=== PATIENT | female | born 2000 | race Caucasian/White ===

== ENCOUNTER → 2025-01-12 | Outpatient (CLI) | payer MEDICAID, SELFPAY ==
[2025-01-12 10:32] LABS: Bacteria 0 SEEN /hpf (None Seen); Mucous, Urine 0 SEEN /hpf (<or=2+)
[2025-01-12 12:18] LABS: Color, Urine Yellow (Yellow); Glucose, Dipstick Normal (Normal); Ketone-Dipstick Negative (Negative); Leukocyte Esterase-Dipstick 500 /ul (Negative); Nitrite-Dipstick Negative (Negative); Occult Blood-Urine Negative /ul (Negative); Protein-Dipstick Negative (Negative); Urine Bilirubin Dipstick Negative (Negative); Urine Clarity Clear (Clear); Urine Urobilinogen Normal (Normal)
[2025-01-12 12:37] LABS: Squamous Epithelial Cells - UA 5-10 SEEN /hpf (5-10); White Blood Cells 0-5 SEEN /hpf (0-5)
[2025-01-12 15:35] LABS: Red Blood Cells-Urine 0 SEEN /hpf (0-5)
== END | disposition home or self-care (01) ==
LOC: LABSPEC 10:31
PROVIDERS: Referring Provider Physician Assistant; Visit Provider Physician Assistant
DX: R39.11 Hesitancy of micturition (principal)
CPT/HCPCS: 81001; 87086; 87088

== ENCOUNTER → 2025-02-02 | Outpatient (CLI) | payer MEDICAID, SELFPAY ==
[2025-02-02 13:24] LABS: Mucous, Urine 0 SEEN /hpf (<or=2+)
[2025-02-02 16:16] LABS: Color, Urine Yellow (Yellow); Glucose, Dipstick Normal (Normal); Ketone-Dipstick Negative (Negative); Leukocyte Esterase-Dipstick 100 /ul (Negative); Nitrite-Dipstick Negative (Negative); Occult Blood-Urine Negative /ul (Negative); Protein-Dipstick Negative (Negative); Specific Gravity, Urine 1.005 (1.002-1.030); Urine Bilirubin Dipstick Negative (Negative); Urine Clarity Clear (Clear); Urine Urobilinogen Normal (Normal)
[2025-02-02 16:42] LABS: Bacteria 1+ /hpf (None Seen); Red Blood Cells-Urine 0-5 SEEN /hpf (0-5); Squamous Epithelial Cells - UA 10-25 SEEN /hpf (5-10); White Blood Cells 5-10 SEEN /hpf (0-5)
== END | disposition home or self-care (01) ==
LOC: LABSPEC 13:21
PROVIDERS: PCP Physician Assistant; Referring Provider Physician Assistant; Visit Provider Physician Assistant
DX: R35.0 Frequency of micturition (principal)
CPT/HCPCS: 81001; 87086; 87088

== ENCOUNTER → 2025-04-08 | Outpatient (CLI) | payer MEDICAID, SELFPAY ==
[2025-04-08 12:48] LABS: Absolute Lymphocyte Count 3.09 X10^3/uL (0.83-4.51); Absolute Neutrophil Count 4.6 X10^3/uL (2.0-7.7); Basophil# 0.05 X10^3/uL; Basophil% 0.6 % (0-1); Eosinophil# 0.09 X10^3/uL; Eosinophils% 1.1 % (0-5); Hematocrit 43.7 % (37-47); Hemoglobin 14.8 g/dL (12.0-15.0); Lymphocyte # 3.09 X10^3/ul (0.83-4.51); Lymphocyte % 36.2 % (19-41); Mean Corp Hgb Conc 33.9 g/dL (32-36); Mean Corpuscular Hgb 30.2 pg (27.0-32.0); Mean Corpuscular Volume 89.2 fL (81-99); Mean Platelet Vol. 10.6 fl (6.2-12.0); Monocyte# 0.65 X10^3/uL; Monocyte% 7.6 % (0-10); NRBC Flagged by Analyzer 0 % (0-5); Neutrophil % 53.9 % (47-70); Platelet Count 369 K/mm3 (150-450); RBC Distribution Width CV 11.9 % (11.6-14.6); RBC Distribution Width SD 38.6 fl (35.1-43.9); White Blood Count 8.5 K/mm3 (4.4-11.0)
[2025-04-08 13:52] LABS: Cholesterol 153 mg/dL (<=200); High Density Lipoprotein 25 mg/dL; Low Density Lipoprotein Calc. 79 mg/dL; Triglycerides 246 mg/dL; Very Low Density Lipoprotein 49 mg/dL (5-40); cholesterol:hdl ratio screen 6.05
[2025-04-08 14:32] LABS: ALB/GLOB Ratio 1.7 RATIO (0.9-2.4); AST(SGOT) 20 U/L (<=31); Alanine Aminotransfer ALT/SGPT 12 U/L (<=34); Albumin, Serum 4.6 g/dL (3.5-5.0); Alkaline Phosphatase 84 U/L (35-104); Anion Gap 10 (5-15); BUN 12 mg/dL (4-19); BUN/Creat Ratio 13.7 RATIO (10-20); Calcium,Total 9.8 mg/dL (7.6-11.0); Chloride 104 mmol/L (98-108); Creatinine, Serum 0.87 mg/dL (0.70-1.20); EST Glomerular Filtration Rate 94 (>60); Globulin 2.7 g/dL (2.2-4.2); Glucose 92 mg/dL (70-99); Potassium 4.2 mmol/L (3.3-5.1); Protein, Total 7.3 g/dL (5.9-8.4); Sodium Level 138 mmol/L (133-145); Total Bilirubin 0.49 mg/dL (0.00-1.30)
--- OUTSIDE RECORDS SUMMARY | 2025-04-08 18:47 | XMS RPT_ITS | CCD ---
Author Organization [facility] Care Team Providers Care Baseball Inspector Name Role Phone KYRA MUHAMMAD Unavailable Unavailable KYRA MUHAMMAD Unavailable Unavailable Pending Provider Unavailable Unavailable Dr. Darnell Garcia Attending Unavailable Dr. Darnell Garcia Referring Unavailable Pending, Provider Primary Care Unavailable Breana Albert Unavailable Sami Araon Attending Provider [phone] Juan LOOMIS, Sami Referring Provider Juan LOOMIS, Sami Primary Care Provider [phone] Juan LOOMIS, Sami Attending Unavailable Juan LOOMIS, Sami Referring Unavailable Juan LOOMIS, Sami Attending Unavailable Juan LOOMIS, Sami Referring Unavailable Juan LOOMIS, Sami Primary Care Unavailable Juan LOOMIS, Sami Attending Unavailable Kiarra PAZ, Dr. Jade Attending Provider Allergies Allergy Classification Reported Allergen(s) Allergy Type Date of Onset Reaction(s) Facility (1 source) Seasonal allergy; Translations: [SEASONAL ALLERGIES] Propensity to adverse reactions (disorder) 6 [facility] Repository Medications Current Medications Medication Drug Class(es) Dates Sig (Normalized) Sig (Original) nitrofurantoin, macrocrystals 25 mg / nitrofurantoin, monohydrate 75 mg oral capsule (2 sources) Nitrofuran Antibacterial Start: 10-19-2023 take 1 capsule by mouth every twelve hours Macrobid 100 MG 1 cap(s) Orally bid for 5 day(s) Sep, Active phenazopyridine hydrochloride 200 mg oral tablet (2 sources) Start: 10-19-2023 take 1 tablet by mouth every eight hours Pyridium 200 MG 1 tablet after meals Orally Three times a day for 2 day(s) Sep, Active Completed/Discontinued Medications Medication Drug Class(es) Dates Sig (Normalized) Sig (Original) amoxicillin 875 mg / clavulanate 125 mg oral tablet (1 source) Penicillin-class Antibacterial Start: 10-03-2022 take 1 tablet by mouth every twelve hours at mealtime Amoxicillin-Pot Clavulanate 875-125 MG Oral Tablet TAKE 1 TABLET EVERY 12 HOURS WITH MEALS UNTIL GONE. Quantity: 20 Refills: 0 Ordered: 03-Oct-2022 Darnell Garcia MD Start : 03-Oct-2022 Active benzonatate 200 mg oral capsule (1 source) Non-narcotic Antitussive Start: 10-03-2022 take 1 capsule by mouth three times daily as needed Benzonatate 200 MG Oral Capsule TAKE 1 CAPSULE 3 TIMES DAILY NEEDED. Quantity: 30 Refills: 0 Ordered: 03-Oct-2022 Darnell Garcia MD Start : 03-Oct-2022 Active loratadine 10 mg oral tablet (1 source) Start: 10-03-2022 take 1 tablet by mouth once daily Loratadine 10 MG Oral Tablet TAKE 1 TABLET DAILY. Quantity: 10 Refills: 0 Ordered: 03-Oct-2022 Darnell Garcia MD Start : 03-Oct-2022 Active Multivitamin tablet (3 sources) Start: 01-12-2025 End: 04-08-2025 Multivitamin tablet Discontinued 1 {tbl} PO EVERY MORNING January 12, 2025 12:00am April 08, 2025 10:29am Start: 01-12-2025 Multivitamin t ablet Active 1 {tbl} PO EVERY MORNING January 12, 2025 12:00am Problems Problem Classification Problem Date Documented Da te Episodic/Chronic Genitourinary symptoms and ill-defined conditions (9 sources) Dysuria; Translations: [Increased frequency of urination] Onset: 01-20-2025 Episodic Other upper respiratory infections (1 source) Acute frontal sinusitis; Translations: [Acute frontal sinusitis] Episodic Unclassified (1 source) Unknown / UNK(Unknown) Onset: 01-02-2018 Urinary tract infections (1 source) Acute cystitis with hematuria Episodic Results Test Name Value Interpretation Reference Range Facility Urine Cultureon 02-03-2025 URC Below infection leve l. Mixed Gram Pos Gram Neg Org Strawberry Count 1000-10,000 MIX[facility] Mixed contaminants. Submit a new specimen if indicated. Normal [facility] Comment on above: Performed By: #### L 400.0001, M100.0 #### [facility] [address] [place], [place], [id number] Bilirubin Test strip Ql (U)O rdered By: Sami Martinez on 02-02-2025 Bilirubin Ql (U) Negative Negative [facility] Epithelial cells.squamous LM Ql (Urine sed)Ordered By: Sami Martinez on 02-02-2025 Epithelial cells.squamous LM.HPF (Urine sed) [#/Area] 10 /[HPF] 5-10 [facility] Glucose Ql (U)Ordered By: Destiney ttyaa Martinez on 02-02-2025 Urine Glucose (UA) Normal mg/dl Normal [facility] Ketones Test strip Ql (U)Ord ered By: Sami Martinez on 02-02-2025 Ketones Ql (U) Negative Negative [facility] Microscopic analysis of urin e for red blood cells (RBC)Ordered By: Sami Martinez on 02-02-2025 Microscopic analysis of urine for red blood cells (RBC) 0-5 SEEN /hpf 0-5 [facility] Urine RBC 0-5 SEEN /hpf 0-5 [facility] Mucus LM Ql (Urine sed)Order ed By: Sami Martinez on 02-02-2025 Mucus Ql (Urine sed) 0 SEEN /hpf [facility] Nitrite Test strip Ql (U)Ord ered By: Sami Martinez on 02-02-2025 Nitrite Ql (U) Negative Negative [facility] Protein Test strip Ql (U)Ord ered By: Sami Martinez on 02-02-2025 Protein Ql (U) Negative Negative [facility] Squamous epithelial cells de tection in urine sediment by light microscopyOrdered By: Sami Martinez on 02-02-2025 Epithelial cells.squamous LM Ql (Urine sed) 10-25 SEEN /hpf 5-10 [facility] Urinalysis, Completeon 02-02 BACTERIA 1+ /hpf Normal None Seen [facility] Comment on above: Order Comment: COLLE CTOR TO SPECIFY Performed By: #### L 400.0001, M100.2200 #### [facility] [address] [place], [address] EPI,SQUAMOUS 10-25 SEEN Normal 5-10 [facility] Comment on above: Order Comment: MARIE CTOR TO SPECIFY Performed By: #### L 400.0001, M100.2200 #### [facility] [address] [place], [address] RBC 0-5 SEEN Normal 0-5 [facility] Comment on above: Order Comment: MARIE CTOR TO SPECIFY Performed By: #### L 400.0001, M100.2200 #### [facility] [address] [place], [address] WBC 5-10 SEEN Normal 0-5 [facility] Comment on above: Order Comment: MARIE CTOR TO SPECIFY Performed By: #### L 400.0001, M100.2200 #### [facility] [address] [place], [address] Mucus Ql (Urine sed) 0 SEEN Normal [facility] Comment on above: Order Comment: MARIE CTOR TO SPECIFY Performed By: #### L 400.0001, M100.2200 #### [facility] [address] [place], [address] Urine blood detectionOrdered By: Sami Martinez on 02-02-2025 Urine Occult Blood Negative Negative [facility] Urine clarityOrdered By: Davide Martinez on 02-02-2025 Clarity (U) Clear Clear [facility] Urine color determinationOrd ered By: Sami Martinez on 02-02-2025 Color (U) Yellow Yellow [facility] Urine cultureOrdered By: Davide Martinez on 02-02-2025 Bacteria identified Cx Nom (U) Mixed Gram Pos & Gram Neg Org Abnormal [facility] Urine glucose detectionOrder ed By: Sami Martinez on 02-02-2025 Glucose Ql (U) Normal mg/dl Normal [facility] Urine leukocyte esterase det ection by dipstickOrdered By: Sami Martinez on 02-02-2025 Leukocyte esterase Test strip Ql (U) 100 /ul High Negative [facility] Urine pHOrdered By: Sami Martinez on 02-02-2025 pH (U) 7.0 [pH] 5.0 - 8.0 [facility] Urine sediment bacteria coun t by microscopy (number/high power field)Ordered By: Sami Martinez on 02-02-2025 Bacteria LM.HPF (Urine sed) [#/Area] 1 /[HPF] None Seen [facility] Urine specific gravity measu rementOrdered By: Sami Martinez on 02-02-2025 Specific gravity (U) [Rel density] 1.005 1.002-1.030 [facility] Urine urobilinogen measureme ntOrdered By: Sami Martinez on 02-02-2025 Urobilinogen Ql (U) Normal mg/dl Normal [facility] Urobilinogen Ql (U)Ordered B y: Sami Martinez on 02-02-2025 Urine Urobilinogen Normal mg/dl Normal [facility] White blood cell countOrdere d By: Sami Martinez on 02-02-2025 Urine WBC 5-10 SEEN /hpf 0-5 [facility] White blood cell count 5-10 SEEN /hpf 0-5 [facility] Urine Cultureon 01-14-2025 URC Mixed Gram Pos Gram Neg Org Strawberry Count 11,000-25,000 [facility] Mixed contaminants. Submit a new specimen if indicated. Normal [facility] Comment on above: Performed By: #### L 400.0001, M100.2200 #### [facility] [place], [address] Epithelial cells.squamous LM Ql (Urine sed)Ordered By: Sami Martinez on 01-12-2025 Epithelial cells.squamous LM.HPF (Urine sed) [#/Area] 5 /[HPF] 5-10 [facility] Glucose Ql (U)Ordered By: Destiney Martinez on 01-12-2025 Urine Glucose (UA) Normal mg/dl Normal [facility] Internal Medicine Office Vis asaf 01-12-2025 Internal Medicine Office Visit [facility] [address] [place] [address] [address] [place], [place] [address] OFFICE VISIT Date of Service: 01/12/25 MR#: [id number] Acct: [id number] Name: GINI LEVIN Rep #: [id number] : 2000 Provider: EBONIE Sánchez Age/Sex: 24/F Location: [facility] [place] Status: Signed Intake Vital Signs 01/12/25 09:36 Height 5 ft 6 in Weight: 191 lb BMI 30.8 BP 120/80 Blood Pressure Location Lt brachial Position Sitting Respiration 16 Pulse 94 Pulse Source Monitor Temp 97.1 F L Temp Source Temporal Pulse Oximetry (%) 99 Oxygen Delivery Method room air Intake Visit Reasons: ACUTE - UTI SYMPTOMS/EST IN MARCH Pass Worker Required: No Is patient in pain?: No Allergies No Known Allergies Allergy (Verified 01/12/25 09:18) Medications ???Medication ???Instructions ???Recorded ???Confirmed ???Type multivitamin 1 tab PO QAM 01/12/25 01/12/25 His tory Nurse's Note: States she was treated in november for 3 weeks for uti through college nurse, sent a culture out as it did not improve. States she felt better after 2nd atb first one was bactrim which didn't help. Friday she woke up w/ R low back pain. Denies urinary frequency, dysuria, hematuria. [facility] Medical History (Updated 01/12/25 @ 10:52 by EBONIE Nye) Partial retinal detachment Strabismus Surgical History (Updated 01/12/25 @ 09:20 by Danya Seymour MA) S/P eye surgery Family History (Updated 01/12/25 @ 09:20 by Danya Seymour MA) Father Hypertension Hyperlipemia Social History (Updated 01/12/25 @ 09:35 by Danya Seymour MA) adopted: No household members: significant other number of children: 0 current occupational status: student current occupation: [employer] pets and animals: No sexually active: Yes Smoking Status: Never smoker alcohol intake: current alcohol intake frequency: holidays/special occasions only substance use type: does not use caffeine: No frequency: 5-6 times per week do you feel safe at home: Yes HPI HPI Details: GINI LEVIN, is a 24 F who presents to the office today for urinary symptoms. She states that In November she started with urinary frequency and then did an at home test which was positive. She saw the [facility] and so she was given antibiotics. She was also having some back pains at the time which were pretty mild on the right side. She states that she didn't see much improvement after several days with the antibiotic and her back pains were actually pretty bad and so she went back several days later and was given a different antibiotic. They did a urine culture which she doesn't know exactly what it said as she was just told that the antibiotic she was on should cover it. So she finished this and her symptoms seemed to be improving (back pains have not resolved completely). She states that Friday she woke up and felt like she had urinary frequency again. She has not had any fevers / chills. There was no gross hematuria. She denies any regular / recurrent urinary tract infections She has been training for a marathon and therefore has been doing a lot more activity since the beginning of the year. She is currently sexually active at same time states that she has been and is not anything new recently. she has not had any PAP smears ROS Const Constitutional: No body ache, chills, excessive sweating, fatigue, fever(s), frequent falls, headache(s), snoring, weakness, sleep problems or change in appetite Eyes Eyes: No blurry vision, change in vision, eye pain or Light sensitivity ENT ENT: No abnormal hearing, ear or mastoid pain, tinnitus, nasal congestion, headache(s), neck pain or sore throat Resp Respiratory: No cough, shortness of breath, snoring or wheezing Cardio Cardiology: No chest pain at rest, chest pain with exertion, excessive sweating, shortness of breath, dyspnea on exertion, lightheadedness, orthopnea or palpitations Gastro GI: No abdominal pain, change in bowel habits, constipation, cramping, diarrhea, nausea/dyspepsia or vomiting Genitourinary-Female: Positive for urinary hesitancy and other; No burning urination, painful urination, urinary incontinence, urinary frequency, abnormal vaginal bleeding or pelvic pain Musc Musculoskeletal: No abnormal gait, joint pain, back pain, limited range of motion, neck pain or numbness Skin Skin: No dry skin, redness, lesions, itchy eyes, rash or wounds Neuro Neurology: No abnormal gait, abnormal hearing, weakness, frequent falls, headache(s), memory loss or numbness Psych Psychiatric: No anxiety, No change in appetite, No depression, No memory loss and No Thoughts of harming yourself/Others Endo Endocrine: No cold intolerance, excessive sweating, fatigue, flushing, heat intolerance, inc (more content not included)... Normal [facility] - Chemistry and C hemistry - challengeOrdered By: Sami Martinez on 01-12-2025 Glucose Ql (U) Negative [facility] Specific gravity (U) [Rel density] 1.005 [facility] Urobilinogen (U) [Mass/Vol] Negative [facility] - Hematology and Cell countsOrdered By: Sami Martinez on 01-12-2025 Hemoglobin Ql (U) Trace [facility] - UrinalysisOrder ed By: Sami Martinez on 01-12-2025 Protein Ql (U) Trace [facility] Microscopic analysis of urin e for red blood cells (RBC)Ordered By: Sami Martinez on 01-12-2025 Microscopic analysis of urine for red blood cells (RBC) 0 SEEN /hpf 0-5 [facility] Urine RBC 0 SEEN /hpf 0-5 [facility] Mucus LM Ql (Urine sed)Order ed By: Sami Martinez on 01-12-2025 Mucus Ql (Urine sed) 0 SEEN /hpf [facility] No Panel InformationOrdered By: Sami Martinez on 01-12-2025 Urine Leukocytes Positive [facility] Urine Non-Hemolyzed Blood Non-Hemolyzed [facility] Protein Test strip Ql (U)Ord ered By: Sami Martinez on 01-12-2025 Protein Ql (U) Negative Negative [facility] Squamous epithelial cells de tection in urine sediment by light microscopyOrdered By: Sami Martinez on 01-12-2025 Epithelial cells.squamous LM Ql (Urine sed) 5-10 SEEN /hpf 5-10 [facility] Urinalysis, Completeon 01-12 RBC 0 SEEN Normal 0-5 [facility] Comment on above: Order Comment: COLLE CTOR TO SPECIFY Performed By: #### L 400.0001, M100.2200 #### [facility] [address] [place], [address] Urine blood detectionOrdered By: Sami Martinez on 01-12-2025 Urine Occult Blood Negative Negative [facility] Urine clarityOrdered By: Davide Martinez on 01-12-2025 Clarity (U) Clear [facility] Urine color determinationOrd ered By: Sami Martinez on 01-12-2025 Color (U) Yellow [facility] Urine cultureOrdered By: Davide Martinez on 01-12-2025 Bacteria identified Cx Nom (U) Mixed Gram Pos & Gram Neg Org Abnormal [facility] Urine glucose detectionOrder ed By: Sami Martinez on 01-12-2025 Glucose Ql (U) Normal mg/dl Normal [facility] Urine ketones detection by t est stripOrdered By: Sami Martinez on 01-12-2025 Ketones Ql (U) Negative [facility] Urine leukocyte esterase det ection by dipstickOrdered By: Sami Martinez on 01-12-2025 Leukocyte esterase Test strip Ql (U) 500 /ul High Negative [facility] Urine nitrite test by dipsti ckOrdered By: Sami Martinez on 01-12-2025 Nitrite Ql (U) Negative [facility] Urine pHOrdered By: Sami Martinez on 01-12-2025 pH (U) 8.0 [pH] [facility] Urine sediment bacteria coun t by microscopy (number/high power field)Ordered By: Sami Martinez on 01-12-2025 Bacteria LM.HPF (Urine sed) [#/Area] 0 /[HPF] None Seen [facility] Urine specific gravity measu rementOrdered By: Sami Martinez on 01-12-2025 Specific gravity (U) [Rel density] 1.010 1.002-1.030 [facility] Urine total bilirubin detect ion by test stripOrdered By: Sami Martinez on 01-12-2025 Bilirubin Ql (U) Negative [facility] Urine urobilinogen measureme ntOrdered By: Sami Martinez on 01-12-2025 Urobilinogen Ql (U) Normal mg/dl Normal [facility] Urobilinogen Ql (U)Ordered B y: Sami Martinez on 01-12-2025 Urine Urobilinogen Normal mg/dl Normal [facility] White blood cell countOrdere d By: Sami Martinez on 01-12-2025 Urine WBC 0-5 SEEN /hpf 0-5 [facility] White blood cell count 0-5 SEEN /hpf 0-5 [facility] Urinalysis - AUTOMATEDon Appearance (U) cloudy [employer] [facility] Other Bilirubin Ql (U) Negative [employer] Other Color (U) yellow [employer] Other Glucose Ql (U) Negative [facility] Other Hemoglobin Ql (U) moderate [employer] Other Ketones Ql (U) Negative [facility] Other Leukocyte esterase Test strip Ql (U) large [employer] Other Nitrite Ql (U) Negative [facility] Other pH (U) 6.0 [pH] [employer] Other Protein Ql (U) trace [facility] Other Specific gravity (U) [Rel density] 1.025 [employer] Other Urobilinogen (U) [Mass/Vol] 0.2 mg/dL [employer] Other Urinalysis - AUTOMATED No rt [employer]3 [employer] Other Office Visit (Urgent Care)on 10-03-2022 Follow-up visit Diagnoses/Problems Assessed Acute frontal sinusitis (461.1) (J01.10) Orders Acute frontal sinusitis Start: Amoxicillin-Pot Clavulanate 875-125 MG Oral Tablet; TAKE 1 TABLET EVERY 12 HOURS WITH MEALS UNTIL GONE Rx By: Darnell Garcia; Dispense: 10 Days ; #:20 Tablet; Refill: 0;For: Acute frontal sinusitis; MICHAEL = N; Print Rx Start: Benzonatate 200 MG Oral Capsule; TAKE 1 CAPSULE 3 TIMES DAILY NEEDED Rx By: Darnell Garcia; Dispense: 10 Days ; #:30 Capsule; Refill: 0;For: Acute frontal sinusitis; MICHAEL = N; Print Rx Start: Loratadine 10 MG Oral Tablet; TAKE 1 TABLET DAILY Rx By: Darnell Garcia; Dispense: 10 Days ; #:10 Tablet; Refill: 0;For: Acute frontal sinusitis; MICHAEL = N; Print Rx Provider Impressions 1. Sinusitis-Augmentin, Tessalon, Claritin Chief Complaint Chief Complaints Cough History of Present Illness 22-year-old female presents with 1 month of initially feeling hot and cold had a fever for a day. Then felt well for 2 weeks but now since has again had fever for a day or 2 but now has lingering head congestion this transition to more cough and chest congestion. No recent fever. Some sore throat some cough especially at night. No earache. No nausea vomit diarrhea. She tried variety of vkql-sei-hvqbfla medications with moderate relief Allergies Medication No Known Drug Allergies Recorded By: John Garibay; 10/03/2022 5:12:31 PM Vitals Vital Signs Recorded: [id number] 05:12PM Ontobfqdxbs16.5 F Heart Rate92 Ounkutjahio11 Qvxwzopz952 Tbjurlgco65 Kzanhl935 lb Tobacco Useb) No PHQ-2 #1. Over the last 2 weeks have you felt down, depressed or hopeless? (If yes, answer PHQ-9 below)No PHQ-2 #2. Over the last 2 weeks have you felt little interest or pleasure in doing things? (If yes, answer PHQ-9 below)No Falls Screening (Age 18+)a) No falls within the last year O2 Nvhdfuljzz69 Pain Scale0 Physical Exam General- No apparent distress, well appearing Cardiovascular- regular rate and rhythm, no gallops, murmurs or rubs Lungs- clear to auscultation bilaterally, no wheezing or rhonchi ENT- moderately faintly erythematous TM's normal pharynx Skin- no rashes noted Signatures Electronically signed by : Darnell Garcia MD; Oct 03 2022 5:33PM EST (Author) Normal [employer] Tobacco Screening.on 022 Adult depression screening assessment No [facility] Work Phone: Fall risk assessment a) No falls within the last year [facility] Work Phone: Tobacco use status [facility] b) No [facility] Work Phone: FOOT-LEFT MIN 3 VIEWSon 08-27 FOOT-LEFT MIN 3 VIEWS GINI LEVIN male [id number] Ordering physician: Leora Adams LOC:RAD [id number] Attending physician: Leora Adams 2000 DOS: 09/09/19 Acc#: [id number] Exam/Proc: FOOT-LEFT MIN 3 VIEWS Dept: RADIOLOGY XR LEFT FOOT 3 VIEWS CLINICAL STATEMENT: PAIN OF TOE AND LT FOOT. COMPARISON: None FINDINGS: There is no evidence of fracture or dislocation. Joint spaces are normally maintained. No soft tissue swelling is visible. IMPRESSION: Normal examination. Electronically signed by: Yadiel Mclean MD 09/09/2019 1:10 PM [facility] REPORT SIGNATURE ON FILE Electronically Signed Date/Time: 09/09/19 1310 Dictated Date/time: 09/09/19 1310 CC: Normal [facility] PROGRESSon 01-02-2018 PROGRESS HNO ID: [id number]: Kyra Hong DeasyService: (none)Author Type: PhysicianType: Progress NotesFiled: 01/02/2018 4:33 PMNote Text:(H35.372) Epiretinal membrane (ERM) of left eye (primary encounterdiagnosis)(H5 3.032) Strabismic amblyopia of left eye17 year old female patient with a history of an epiretinal membrane in theleft eye. The vitreous appears to be pulling away. Recommend continuedobservation at this time. The patient is cautioned to the s/s of retinaltear or retinal detachment and understands to call the office promptlywith new symptoms.The right eye is stable with a normal macula.Return to clinic in 1 year + as needed.The documentation recorded by the scribe accurately reflects the service Ipersonally performed and the decisions made by me.I have confirmed and edited as necessary the relevant ophthalmic history,ROS, and the neuro exam findings as obtained by others. I have seen andexamined Gini Levin. I have discussed the case and the management ofthis patient's care with the Rotary Dryer Operator, if applicable. I also havereviewed and agree with the assessment and plan as stated above and agreewith all of its relevant components.Kyra Muhammad MD [facility] Vital Signs Date Time Vital Sign Value Performing Clinician Facility 04-08-2025 10:30-0400 Body height 167.64 cm Sami Martinez PA Work Phone: [facility] 04-08-2025 10:30-0400 Body mass index (BMI) [Ratio] 30.3 kg/m2 Sami Martinez PA Work Phone: [facility] 04-08-2025 10:30-0400 Body temperature 98.4 [degF] Sami Martinez PA Work Phone: [facility] 04-08-2025 10:30-0400 Body weight 85.27 kg Sami Eldridget PA Work Phone: [facility] 04-08-2025 10:30-0400 Diastolic blood pressure 88 mm[Hg] Sami Martinez PA Work Phone: [facility] 04-08-2025 10:30-0400 Heart rate 86 /min Sami Martinez PA Work Phone: [facility] 04-08-2025 10:30-0400 Respiratory rate 16 /min Sami Martinez PA Work Phone: [facility] 04-08-2025 10:30-0400 SaO2% (BldA) [Mass fraction] 99 % Sami Martinez PA Work Phone: [facility] 04-08-2025 10:30-0400 Systolic blood pressure 122 mm[Hg] Sami Wayt PA Work Phone: [facility] 01-12-2025 09:36-0400 Body height 167.64 cm Sami Wayt PA Work Phone: [facility] 01-12-2025 09:36-0400 Body mass index (BMI) [Ratio] 30.8 kg/m2 Sami Wayt PA Work Phone: [facility] 01-12-2025 09:36-0400 Body temperature 97.1 [degF] Sami Wayt PA Work Phone: [facility] 01-12-2025 09:36-0400 Body weight 86.63 kg Sami Wayt PA Work Phone: [facility] 01-12-2025 09:36-0400 Diastolic blood pressure 80 mm[Hg] Sami Wayt PA Work Phone: [facility] 01-12-2025 09:36-0400 Heart rate 94 /min Sami Wayt PA Work Phone: [facility] 01-12-2025 09:36-0400 Respiratory rate 16 /min Sami Wayt PA Work Phone: [facility] 01-12-2025 09:36-0400 SaO2% (BldA) [Mass fraction] 99 % Sami Wayt PA Work Phone: [facility] 01-12-2025 09:36-0400 Systolic blood pressure 120 mm[Hg] Sami Wayt PA Work Phone: [facility] 10-19-2023 11:40-0500 Body height 167.64 cm Breana Albert Other [facility] Other 10-19-2023 11:40-0500 Body mass index (BMI) [Ratio] 32.34 kg/m2 Breana Albert Other [facility] Other 10-19-2023 11:40-0500 Body temperature 98.4 [degF] Breana Albert Other [facility] Other 10-19-2023 11:40-0500 Body weight 90.9 kg Breana Albert Other [facility] Other 10-19-2023 11:40-0500 Diastolic blood pressure 80 mm[Hg] Breana Albert Other [facility] Other 10-19-2023 11:40-0500 Respiratory rate 18 /min Breana Albert Other [facility] Other 10-19-2023 11:40-0500 SaO2% (BldA) [Mass fraction] 98 % Breana Albert Other [facility] Other 10-19-2023 11:40-0500 Systolic blood pressure 132 mm[Hg] Breana Albert Other [facility] Other 10-03-2022 17:12-0500 Body temperature 97.5 [degF] Darnell Garcia MD Work Phone: [facility] Work Phone: 10-03-2022 17:12-0500 Body weight 81.65 kg Darnell Garcia MD Work Phone: [facility] Work Phone: 10-03-2022 17:12-0500 Diastolic blood pressure 83 mm[Hg] Darnell Garcia MD Work Phone: [facility] Work Phone: 10-03-2022 17:12-0500 Heart rate 92 /min Darnell Garcia MD Work Phone: [facility] Work Phone: 10-03-2022 17:12-0500 Respiratory rate 16 /min Darnell Garcia MD Work Phone: [facility] Work Phone: 10-03-2022 17:12-0500 SaO2% (BldA) [Mass fraction] 99 % Darnell Garcia MD Work Phone: [facility] Work Phone: 10-03-2022 17:12-0500 Systolic blood pressure 152 mm[Hg] Darnell Garcia MD Work Phone: [facility] Work Phone: 10-03-2022 17:12-0500 0 1 Darnell Garcia MD Work Phone: [facility] Work Phone: Comment on above: [employer] Encounters Encounter Date Encounter Type Care Provider Facility Start: 04-08-2025 Patient encounter status Sami LOOMIS Work Phone: [facility] Start: 04-08-2025 End: 04-08-2025 ambulatory Sami LOOMIS Work Phone: [facility] Work Phone: Start: 04-08-2025 End: 04-08-[address] Kalie Plunkett MD -[facility] Work Phone: Start: 02-02-2025 End: 02-02-2025 ambulatory Sami LOOMIS Work Phone: [facility] Work Phone: Start: 02-02-2025 End: 02-02-2025 Patient encounter procedure Sami LOOMIS -Laboratory, Specimen Work Phone: Start: 02-02-2025 End: 02-02-2025 ambulatory Sami LOOMIS Facility:[facility] Start: 01-12-2025 End: 01-12-2025 Patient encounter procedure Sami LOOMIS -Laboratory, Specimen Work Phone: Start: 01-12-2025 End: 01-12-2025 Patient encounter procedure Sami LOOMIS -[facility] Work Phone: Start: 01-12-2025 End: 01-12-2025 ambulatory Sami LOOMIS Work Phone: [facility] Work Phone: Start: 01-12-2025 End: 01-12-2025 ambulatory Sami LOOMIS Facility:[facility] Start: 10-23-2023 End: 10-23-2023 ambulatory Breana Albert Other [facility] Other Start: 10-23-2023 Telephone encounter Breana [facility] Start: 10-19-2023 End: 10-19-2023 ambulatory Breana Albert Other [employer] Other Start: 10-19-2023 Office outpatient ne w 20 minutes Breana Albert [facility] Start: 10-03-[address] Darnell Garcia [facility] [id number] Start: 10-03-2022 Office outpatient ne w 30 minutes Darnell Garcia MD Work Phone: [facility] Work Phone: Start: 01-02-2018 End: 01-05-2018 Ambulatory KYRA MUHAMMAD [facility] Procedures Date Procedure Procedure Detail Performing Clinician Start: 02-02-2025 Urine culture Sami LOOMSI Work Phone: Start: 02-02-2025 Urnls dip stick/tabl et reagent auto microscopy Sami LOOMIS Work Phone: Start: 01-12-2025 Urine culture Sami LOOMIS Work Phone: Start: 01-12-2025 Urnls dip stick/tabl et reagent auto microscopy Sami LOOMIS Work Phone: Plan of Treatment Date Care Activity Detail Author CBC W Auto Differential panel - Blood [facility] Comprehensive metabo lic 1999 panel - Serum or Plasma [facility] Lipid 1995 panel - Serum or Plasma [facility] Payers Date Payer Category Payer Self-pay 2025 Unknown [id number] 1998 Unknown [id number] [facility] [facility] Unknown [id number] Unknown [id number] Unknown [id number] Unknown [id number] Social History Date Type Detail Facility Unknown if ever smoked [facility] Other Sex Assigned At [facility] Start: 01-12-2025 Tobacco smoking status NHIS Never smoked tobacco (finding) [facility] Start: 01-20-2025 End: 02-07-2025 Sex Female (finding) [facility] Start: 2000 Sex Assigned At Female [facility] Sexual Orientation Heterosexual (finding) [facility] Evaluation note 01-12-2025 Note Date & Type Note Facility 01-12-2025 Evaluation note Diagnosis Onset Date Resolution Urinary frequency acute December 252024 9:00am [facility] Work Phone: Evaluation note 10-19-2023 Note Date & Type Note Facility 10-19-2023 Evaluation note Encounter Date Diagnosis Assessment Notes Sep, Dysuria (ICD-10 - R30.0) Sep, Acute cystitis with hematuria (ICD-10 - N30.01) Drink plenty fluids, get plenty of rest. Take the Macrobid and Pyridium as prescribed until gone. Take Tylenol or Motrin as needed for aches pains or fevers. Follow-up with your family physician if no improvement in 2 to 3 days [facility] [employer] Other Evaluation note Note Date & Type Note Facility Evaluation note No Information [facility] [employer] Other History of Present illness Narrative Note Date & Type Note Facility History of Present illness Narrative 22-year-old female presents with 1 month of initially feeling hot and cold had a fever for a day. Then felt well for 2 weeks but now since Thanksgiving has again had fever for a day or 2 but now has lingering head congestion this transition to more cough and chest congestion. No recent fever. Some sore throat some cough especially at night. No earache. No nausea vomit diarrhea. She tried variety of [id number] medications with moderate relief [facility] Work Phone: Reason for referral (narrative) Note Date & Type Note Facility Reason for referral (narrative) No reason for referral information available [facility] Work Phone: Summary Purpose Family History Relationship Condition Age at Onset Recorded Date/T kwadwo father Hypertension Unknown Hyperlipidemia Unknown Advance Directives No Advanced Directives Records FoundNo Advanced Directives Records FoundNo Advanced Directives Records FoundNo Advanced Directives Records FoundNo Advanced Directives Records Found Chief Complaint and Reason for Visit Chief Complaint Admit Date ACUTE - UTI SYMPTOMS/EST IN MarchDecember 252024 9:00am Reason for Visit Admit Date Urinary frequency January 12, 2025 9:0 0am Chief Complaint Admit Date ACUTE - UTI SYMPTOMS/EST IN MarchDecember 252024 9:00am [facility]. EST C[facility] - HAS PPW April 08, 2025 1 0:25am Additional Source Comments INFORMATION SOURCE (unrecogn ized section and content) DATE CREATED AUTHOR 04/17/2018 [facility] DATE CREATED AUTHOR AUTHOR'S ORGANIZ ATION 09/09/[address] [facility] DATE CREATED AUTHOR AUTHOR'S ORGANIZ ATION 10/04/2022 [facility] DATE CREATED AUTHOR AUTHOR'S ORGANIZ ATION 10/04/2022 [facility] DATE CREATED AUTHOR AUTHOR'S ORGANIZ ATION 02/09/2025 [facility] REASON FOR VISIT (unrecogniz ed section and content) POSSIBLE UTINo Information Care Teams (unrecognized sec tion and content) Team Status: Inactive Member Role Status Dates EBONIE Nye Attending Provider Active St art: January 12, 2025 End: January 12, 2025 Team Status: Inactive Member Role Status Dates Sami LOOMIS PA Attending Provider Active St art: January 12, 2025 End: January 12, 2025 Sami LOOMIS PA Referring Provider Active St art: January 12, 2025 End: January 12, 2025 Team Status: Active Member Role Status Dates EBONIE Nye Primary Care Provider Active Team Status: Inactive Member Role Status Dates Sami LOOMIS PA Primary Care Provider Active Start: February 02, 2025 End: February 02, 2025 Sami LOOMIS PA Attending Provider Active St art: February 02, 2025 End: February 02, 2025 Sami LOOMIS PA Referring Provider Active St art: February 02, 2025 End: February 02, 2025 Team Status: Inactive Member Role Status Dates Dr. Kalie Plunkett MD Attending Provider Active Start: April 08, 2025 End: April 08, 2025 EBONIE Nye Primary Care Provider Active Start: April 08, 2025 End: April 08, 2025 EBONIE Nye Referring Provider Active St art: April 08, 2025 End: April 08, 2025 Goals (unrecognized section and content) Goals may be documented in a n alternate section FOR RECORDS PERTAINING TO PATIENTS WHO ARE OR HAVE BEEN ENROLLED IN A CHEMICAL DEPENDENCY/SUBSTANCEABUSE PROGRAM, SOME INFORMATION MAY BE OMITTED. This clinical summary was aggregated from multiple sources. Caution should be exercised in using it in the provision of clinical care. This summary normalizes information from multiple sources, and as a consequence, information in this document may materially change the coding, format and clinical context of patient data. In addition, data may be omitted in some cases. CLINICAL DECISIONS SHOULD BE BASED ON THE PRIMARY CLINICAL RECORDS. [facility]. provides no warranty or guarantee of the accuracy or completeness of information in this document.
== END | disposition home or self-care (01) ==
LOC: BIMLAB 11:02
PROVIDERS: PCP Internal Medicine; Referring Provider Internal Medicine; Visit Provider Internal Medicine
DX: Z00.00 Encounter for general adult medical examination without abnormal findings (principal)
CPT/HCPCS: 36415; 80053; 80061; 85025